=== PATIENT | male | born 1985 | race Caucasian/White ===

== ENCOUNTER 2019-03-01 14:29 | Emergency (ER) | payer SELFPAY ==
[~2019-03-01] VITALS: Ht 180.3 cm; Wt 85.5 kg
[2019-03-01 14:42] VITALS: TEMP 97.7
[2019-03-01 15:04] LABS: COLLECTION METHOD CLEAN CATCH
[2019-03-01 15:36] LABS: TRICYCLIC ANTIDEPRESS URINE NEGATIVE
[2019-03-01 15:49] LABS: BASO # 0.1 (0.0-0.2); BASO % 0.7 % (0.0-2.0); EOS % 0.2 % (0-4.0); GRAN # 7.1 (1.4-6.5); GRAN % 80.8 % (42.2-75.2); HEMATOCRIT 48.2 % (42.0-52.0); HEMOGLOBIN 15.9 g/dl (13.5-18.0); MEAN CELL VOLUME 89 fl (80.0-100.0); MEAN CORPUSCULAR HEMOGLOBIN 30 pg (27.0-31.0); MEAN CORPUSCULAR HGB CONC 33 g/dl (33.0-37.0); MEAN PLATELET VOLUME 9.7 fl (7.4-10.4); MONO # 0.6 (0.1-0.6); MONO % 6.8 % (1.7-9.3); PLATELET COUNT 288 K/mm3 (130-400); RED BLOOD COUNT 5.39 M/mm3 (4.20-5.60); REDCELL DISTRIBUTION WIDTH-CV 12.5 % (11.5-14.5)
[2019-03-01] MEDS ORDERED: ULTRAM 50MG TAB50 MG PO (15:54)
[2019-03-01] MEDS ORDERED: SINGULAIR 110 MG/TAB PO (15:54)
[2019-03-01 15:55] LABS: ALANINE AMINOTRANSFERASE 69 U/L (21-72); ALBUMIN 4.5 gm/dL (3.5-5.0); ALKALINE PHOSPHATASE 106 U/L (50-136); ANION GAP 12 mmol/L (7-16); AST,SGOT 100 U/L (15-37); BILIRUBIN,TOTAL 0.7 mg/dL (0.0-1.0); BLOOD UREA NITROGEN 16 mg/dL (9-20); CALCIUM 9.8 mg/dL (8.4-10.2); CARBON DIOXIDE 26 mmol/L (22-30); CHLORIDE 106 mmol/L (98-107); CREATININE, serum 0.72 (0.66-1.25); GLUCOSE 98 mg/dL (74-106); POTASSIUM 3.8 mmol/L (3.4-5.0); SODIUM 144 mmol/L (137-145)
[2019-03-01] MEDS ORDERED: FOCALIN XR15 MG PO (15:55)
[2019-03-01 15:58] LABS: ACETAMINOPHEN < 10 ug/mL (10-30); ALCOHOL(ethanol),MEDICAL < 10 mg/dL; SALICYLATE < 1.0 mg/dL
[2019-03-01 16:08] LABS: AMORPHOUS CRYSTAL Present /uL; MUCOUS Present /lpf; PH 6 (5-8); SQUAMOUS EPITHELIAL 0-2 /hpf; URINE APPEARANCE Cloudy; URINE BACTERIA None Seen /hpf; URINE BILIRUBIN Negative (NEGATIVE); URINE BLOOD Negative (NEGATIVE); URINE COLOR Yellow; URINE GLUCOSE Negative (NEGATIVE); URINE KETONE 1+ (NEGATIVE); URINE LEUKOCYTE ESTERASE Negative (NEGATIVE); URINE NITRATE Negative (NEGATIVE); URINE PROTEIN(semi-quant) Negative (NEGATIVE); URINE RBC 0-2 /hpf
[2019-03-01 20:11] VITALS: BP 119/64; PULSE 71
== END 2019-03-01 20:11 ==
LOC: COL.ER 14:29
PROVIDERS: Emergency Medicine
DX: F22 Delusional disorders (principal); Z90.49 Acquired absence of other specified parts of digestive tract
CPT/HCPCS: A4216; J3486

== ENCOUNTER 2019-03-13 14:40 | Emergency (ER) | payer SELFPAY ==
[~2019-03-13] VITALS: Ht 177.8 cm; Wt 81.8 kg
[~2019-03-13 14:40] MED LIST: FOCALIN XR15 MG PO; SINGULAIR 110 MG/TAB PO; ULTRAM 50MG TAB50 MG PO
[2019-03-13 14:53] VITALS: BP 121/77; TEMP 97.8
[2019-03-13] MEDS ORDERED: HALDOL 5MG T5 MG/TAB PO (15:16)
[2019-03-13] MEDS ORDERED: COGENTIN .0.5 MG/TAB PO (15:16)
[2019-03-13] MEDS ORDERED: DESYREL 100MG100 MG PO ×2 (15:16→16:18)
[2019-03-13 15:35] LABS: BASO % 0.4 % (0.0-2.0); GRAN # 8.5 (1.4-6.5); GRAN % 81.7 % (42.2-75.2); HEMATOCRIT 47.2 % (42.0-52.0); HEMOGLOBIN 15.6 g/dl (13.5-18.0); LYMPH # 1.2 (1.2-3.4); LYMPH % 11.5 % (20.0-51.0); MEAN CELL VOLUME 88 fl (80.0-100.0); MEAN CORPUSCULAR HEMOGLOBIN 29 pg (27.0-31.0); MEAN CORPUSCULAR HGB CONC 33 g/dl (33.0-37.0); MEAN PLATELET VOLUME 9.2 fl (7.4-10.4); MONO # 0.6 (0.1-0.6); MONO % 6.1 % (1.7-9.3); PLATELET COUNT 242 K/mm3 (130-400); RED BLOOD COUNT 5.39 M/mm3 (4.20-5.60); REDCELL DISTRIBUTION WIDTH-CV 12.1 % (11.5-14.5)
[2019-03-13 15:45] LABS: ALBUMIN 4.3 gm/dL (3.5-5.0); BILIRUBIN,TOTAL 0.6 mg/dL (0.0-1.0); CALCIUM 9.8 mg/dL (8.4-10.2); CREATININE, serum 0.9 (0.66-1.25); POTASSIUM 4.1 mmol/L (3.4-5.0); TOTAL PROTEIN 7.7 gm/dL (6.4-8.2)
[2019-03-13] MEDS ORDERED: COGENTIN 1MG1 MG/TAB PO (16:18)
[2019-03-13] MEDS ORDERED: HALDOL 2MG T2 MG/TAB PO (16:18)
[2019-03-13 16:36] VITALS: PULSE 87
== END 2019-03-13 16:37 | disposition home or self-care (01) ==
LOC: COL.ER 14:40
PROVIDERS: Family Medicine
DX: G24.09 Other drug induced dystonia (principal); F20.9 Schizophrenia, unspecified
CPT/HCPCS: J1200

== ENCOUNTER 2019-03-21 13:15 | Emergency (ER) | payer SELFPAY ==
[~2019-03-21] VITALS: Ht 177.8 cm; Wt 81.8 kg
[~2019-03-21 13:15] MED LIST changes: +COGENTIN .0.5 MG/TAB PO; +COGENTIN 1MG1 MG/TAB PO; +DESYREL 100MG100 MG PO; +HALDOL 2MG T2 MG/TAB PO; +HALDOL 5MG T5 MG/TAB PO
[2019-03-21 13:21] VITALS: TEMP 96
[2019-03-21 14:15] LABS: BASO # 0.1 (0.0-0.2); BASO % 0.6 % (0.0-2.0); EOS # 0.1 (0.0-0.7); EOS % 0.6 % (0-4.0); GRAN # 6.5 (1.4-6.5); GRAN % 79.4 % (42.2-75.2); HEMATOCRIT 46.8 % (42.0-52.0); HEMOGLOBIN 15.4 g/dl (13.5-18.0); LYMPH % 12.1 % (20.0-51.0); MEAN CELL VOLUME 90 fl (80.0-100.0); MEAN CORPUSCULAR HEMOGLOBIN 29 pg (27.0-31.0); MEAN CORPUSCULAR HGB CONC 33 g/dl (33.0-37.0); MEAN PLATELET VOLUME 9.4 fl (7.4-10.4); MONO # 0.6 (0.1-0.6); MONO % 7.1 % (1.7-9.3); PLATELET COUNT 245 K/mm3 (130-400); RED BLOOD COUNT 5.23 M/mm3 (4.20-5.60); REDCELL DISTRIBUTION WIDTH-CV 12.1 % (11.5-14.5)
[2019-03-21 14:26] LABS: ALBUMIN 4.3 gm/dL (3.5-5.0); BILIRUBIN,TOTAL 0.3 mg/dL (0.0-1.0); CALCIUM 9.5 mg/dL (8.4-10.2); CREATININE, serum 1.2 (0.66-1.25); MAGNESIUM 2.2 mg/dL (1.6-2.3); PHOSPHOROUS 3.2 mg/dL (2.5-4.5); POTASSIUM 4.2 mmol/L (3.4-5.0); TOTAL PROTEIN 7.7 gm/dL (6.4-8.2)
[2019-03-21 14:55] LABS: TSH w REFLEX 0.465 uIU/mL (0.465-4.680)
[2019-03-21] MEDS ORDERED: ATIVAN 0.50.5 MG/TAB PO (15:22)
[2019-03-21 16:13] VITALS: BP 116/76; PULSE 58
== END 2019-03-21 16:16 | disposition home or self-care (01) ==
LOC: COL.ER 13:15
PROVIDERS: Emergency Medicine
DX: G24.02 Drug induced acute dystonia (principal); F22 Delusional disorders
CPT/HCPCS: J1200; J2060; J7030

== ENCOUNTER 2019-06-13 18:21 | Emergency (ER) | payer OTHER ==
[~2019-06-13] VITALS: Ht 180.3 cm; Wt 81.8 kg
[~2019-06-13 18:21] MED LIST changes: +ATIVAN 0.50.5 MG/TAB PO
[2019-06-13 18:32] VITALS: TEMP 98.3
[2019-06-13 19:26] LABS: COLLECTION METHOD CLEAN CATCH
[2019-06-13 19:36] LABS: BASO # 0.1 (0.0-0.2); BASO % 0.6 % (0.0-2.0); GRAN # 6.8 (1.4-6.5); GRAN % 78.2 % (42.2-75.2); HEMATOCRIT 48.2 % (42.0-52.0); HEMOGLOBIN 16.3 g/dl (13.5-18.0); LYMPH # 1.3 (1.2-3.4); LYMPH % 14.8 % (20.0-51.0); MEAN CELL VOLUME 85 fl (80.0-100.0); MEAN CORPUSCULAR HEMOGLOBIN 29 pg (27.0-31.0); MEAN CORPUSCULAR HGB CONC 34 g/dl (33.0-37.0); MEAN PLATELET VOLUME 9.3 fl (7.4-10.4); MONO # 0.5 (0.1-0.6); MONO % 6.2 % (1.7-9.3); PLATELET COUNT 247 K/mm3 (130-400); RED BLOOD COUNT 5.65 M/mm3 (4.20-5.60); REDCELL DISTRIBUTION WIDTH-CV 12.9 % (11.5-14.5)
[2019-06-13 19:44] LABS: MUCOUS Present /lpf; PH 6 (5-8); SQUAMOUS EPITHELIAL None Seen /hpf; URINE APPEARANCE Clear; URINE BACTERIA None Seen /hpf; URINE BILIRUBIN Negative (NEGATIVE); URINE BLOOD Negative (NEGATIVE); URINE COLOR Yellow; URINE GLUCOSE Negative (NEGATIVE); URINE KETONE 2+ (NEGATIVE); URINE LEUKOCYTE ESTERASE Negative (NEGATIVE); URINE NITRATE Negative (NEGATIVE); URINE PROTEIN(semi-quant) Negative (NEGATIVE); URINE RBC 0-2 /hpf
[2019-06-13 19:48] LABS: ALBUMIN 4.8 gm/dL (3.5-5.0); BILIRUBIN,TOTAL 0.6 mg/dL (0.0-1.0); C-REACTIVE PROTEIN 0.7 mg/dL (0.0-0.9); CALCIUM 9.6 mg/dL (8.4-10.2); CREATININE, serum 0.8 (0.66-1.25); POTASSIUM 3.6 mmol/L (3.4-5.0); TOTAL PROTEIN 8.1 gm/dL (6.4-8.2)
[2019-06-13] MEDS ORDERED: PEPCID40 MG PO (20:14)
[2019-06-13 20:40] VITALS: BP 125/80; PULSE 72
== END 2019-06-13 20:41 | disposition home or self-care (01) ==
LOC: COL.ER 18:21
PROVIDERS: Emergency Medicine
DX: R10.11 Right upper quadrant pain (principal); R10.31 Right lower quadrant pain; R10.12 Left upper quadrant pain; R10.32 Left lower quadrant pain; F20.9 Schizophrenia, unspecified

== ENCOUNTER 2019-06-14 14:35 | Emergency (ER) | payer OTHER ==
[~2019-06-14 14:35] MED LIST changes: +PEPCID40 MG PO
[2019-06-15] MEDS ORDERED: BACTROBAN 22GM22 GM TP (11:46)
== END 2019-06-14 14:50 | disposition left against medical advice (07) ==
LOC: COL.ER 14:35
DX: Z72.9 Problem related to lifestyle, unspecified (principal)

== ENCOUNTER 2019-06-15 08:38 | Emergency (ER) | payer OTHER ==
[~2019-06-15] VITALS: Ht 177.8 cm; Wt 81.8 kg
[2019-06-15 08:42] VITALS: BP 115/77; TEMP 98.8
[2019-06-15 09:38] LABS: COLLECTION METHOD CLEAN CATCH
[2019-06-15 09:43] LABS: BASO % 0.5 % (0.0-2.0); EOS % 0.1 % (0-4.0); GRAN # 6.6 (1.4-6.5); GRAN % 78.8 % (42.2-75.2); HEMATOCRIT 47.8 % (42.0-52.0); HEMOGLOBIN 15.7 g/dl (13.5-18.0); LYMPH # 1.1 (1.2-3.4); LYMPH % 13.4 % (20.0-51.0); MEAN CELL VOLUME 86 fl (80.0-100.0); MEAN CORPUSCULAR HEMOGLOBIN 28 pg (27.0-31.0); MEAN CORPUSCULAR HGB CONC 33 g/dl (33.0-37.0); MEAN PLATELET VOLUME 9.4 fl (7.4-10.4); MONO # 0.6 (0.1-0.6); MONO % 6.8 % (1.7-9.3); PLATELET COUNT 235 K/mm3 (130-400); RED BLOOD COUNT 5.56 M/mm3 (4.20-5.60); REDCELL DISTRIBUTION WIDTH-CV 13.2 % (11.5-14.5)
[2019-06-15 09:46] LABS: MUCOUS Present /lpf; PH 5 (5-8); SQUAMOUS EPITHELIAL None Seen /hpf; URINE APPEARANCE Hazy; URINE BACTERIA Moderate /hpf; URINE BILIRUBIN Negative (NEGATIVE); URINE BLOOD Negative (NEGATIVE); URINE COLOR Yellow; URINE GLUCOSE Negative (NEGATIVE); URINE KETONE 1+ (NEGATIVE); URINE LEUKOCYTE ESTERASE Negative (NEGATIVE); URINE NITRATE Negative (NEGATIVE); URINE PROTEIN(semi-quant) 1+ (NEGATIVE)
[2019-06-15 09:54] LABS: ALBUMIN 4.6 gm/dL (3.5-5.0); BILIRUBIN,TOTAL 0.5 mg/dL (0.0-1.0); CALCIUM 9.4 mg/dL (8.4-10.2); CREATININE, serum 0.85 (0.66-1.25); POTASSIUM 4.4 mmol/L (3.4-5.0); TOTAL PROTEIN 7.7 gm/dL (6.4-8.2)
[2019-06-15 10:07] LABS: TRICYCLIC ANTIDEPRESS URINE NEGATIVE
[2019-06-15] MEDS ORDERED: BACTROBAN 22GM22 GM TP (11:46)
[2019-06-15 12:05] VITALS: PULSE 89
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
== END 2019-06-15 12:09 | disposition home or self-care (01) ==
LOC: COL.ER 08:38
PROVIDERS: Family Medicine
DX: S80.811A Abrasion, right lower leg, initial encounter (principal); F20.9 Schizophrenia, unspecified; W22.8XXA Striking against or struck by other objects, initial encounter

== ENCOUNTER 2019-06-17 13:59 | Emergency (ER) | payer OTHER ==
[~2019-06-17] VITALS: Ht 180.3 cm; Wt 81.8 kg
[~2019-06-17 13:59] MED LIST changes: +BACTROBAN 22GM22 GM TP
[2019-06-17 14:09] VITALS: BP 113/74; TEMP 97.9
[2019-06-17 14:37] VITALS: PULSE 79
== END 2019-06-17 14:37 | disposition home or self-care (01) ==
LOC: COL.ER 13:59
DX: L08.9 Local infection of the skin and subcutaneous tissue, unspecified (principal); L98.9 Disorder of the skin and subcutaneous tissue, unspecified; F31.9 Bipolar disorder, unspecified; F90.9 Attention-deficit hyperactivity disorder, unspecified type; F20.9 Schizophrenia, unspecified
CPT/HCPCS: J0696

== ENCOUNTER 2019-06-21 23:55 | Emergency (ER) | payer OTHER ==
[2019-06-22 00:04] VITALS: BP 128/86; PULSE 81
== END 2019-06-22 00:20 | disposition left against medical advice (07) ==
LOC: COL.ER 23:55
DX: R69 Illness, unspecified (principal)

== ENCOUNTER 2019-06-22 15:25 | Emergency (ER) | payer OTHER ==
[~2019-06-22] VITALS: Ht 177.8 cm; Wt 81.8 kg
[2019-06-22 15:39] VITALS: BP 132/72; PULSE 77; TEMP 98.4
[2019-06-22 15:45] LABS: COLLECTION METHOD CLEAN CATCH
[2019-06-22 16:06] LABS: TRICYCLIC ANTIDEPRESS URINE NEGATIVE
[2019-06-22 16:10] LABS: ALANINE AMINOTRANSFERASE 33 U/L (21-72); ALBUMIN 4.5 gm/dL (3.5-5.0); ALKALINE PHOSPHATASE 111 U/L (50-136); ANION GAP 9 mmol/L (7-16); AST,SGOT 31 U/L (15-37); BASO # 0.1 (0.0-0.2); BILIRUBIN,TOTAL 0.8 mg/dL (0.0-1.0); BLOOD UREA NITROGEN 13 mg/dL (9-20); CALCIUM 9.6 mg/dL (8.4-10.2); CARBON DIOXIDE 27 mmol/L (22-30); CHLORIDE 103 mmol/L (98-107); CREATININE, serum 0.93 (0.66-1.25); EOS # 0.1 (0.0-0.7); EOS % 1.6 % (0-4.0); GLUCOSE 85 mg/dL (74-106); GRAN % 65.8 % (42.2-75.2); HEMATOCRIT 48.6 % (42.0-52.0); HEMOGLOBIN 16.6 g/dl (13.5-18.0); LYMPH # 1.4 (1.2-3.4); LYMPH % 22.3 % (20.0-51.0); MEAN CELL VOLUME 84 fl (80.0-100.0); MEAN CORPUSCULAR HEMOGLOBIN 29 pg (27.0-31.0); MEAN CORPUSCULAR HGB CONC 34 g/dl (33.0-37.0); MEAN PLATELET VOLUME 9.6 fl (7.4-10.4); MONO # 0.6 (0.1-0.6); MONO % 9.1 % (1.7-9.3); PLATELET COUNT 225 K/mm3 (130-400); POTASSIUM 4.2 mmol/L (3.4-5.0); RED BLOOD COUNT 5.76 M/mm3 (4.20-5.60); REDCELL DISTRIBUTION WIDTH-CV 12.8 % (11.5-14.5); SODIUM 138 mmol/L (137-145); TOTAL PROTEIN 7.7 gm/dL (6.4-8.2)
[2019-06-22 16:12] LABS: ACETAMINOPHEN < 10 ug/mL (10-30); ALCOHOL(ethanol),MEDICAL < 10 mg/dL; SALICYLATE < 1.0 mg/dL
[2019-06-22 16:48] LABS: MUCOUS Present /lpf; PH 5 (5-8); SQUAMOUS EPITHELIAL 0-2 /hpf; URINE APPEARANCE Clear; URINE BACTERIA None Seen /hpf; URINE BILIRUBIN Negative (NEGATIVE); URINE BLOOD Negative (NEGATIVE); URINE COLOR Amber; URINE GLUCOSE Negative (NEGATIVE); URINE KETONE Trace (NEGATIVE); URINE LEUKOCYTE ESTERASE Negative (NEGATIVE); URINE NITRATE Negative (NEGATIVE); URINE PROTEIN(semi-quant) Negative (NEGATIVE); URINE RBC 0-2 /hpf
== END 2019-06-22 17:55 | disposition left against medical advice (07) ==
LOC: COL.ER 15:25
PROVIDERS: Emergency Medicine
DX: K59.00 Constipation, unspecified (principal); R30.0 Dysuria; F20.9 Schizophrenia, unspecified

== ENCOUNTER 2019-08-09 10:55 | Emergency (ER) | payer OTHER ==
[~2019-08-09] VITALS: Ht 177.8 cm; Wt 68.6 kg
[2019-08-09 11:44] LABS: COLLECTION METHOD CLEAN CATCH
[2019-08-09 11:48] LABS: BASO # 0.1 (0.0-0.2); BASO % 0.8 % (0.0-2.0); EOS # 0.1 (0.0-0.7); GRAN # 4.2 (1.4-6.5); GRAN % 71.2 % (42.2-75.2); HEMATOCRIT 47.6 % (42.0-52.0); HEMOGLOBIN 16.2 g/dl (13.5-18.0); LYMPH # 1.2 (1.2-3.4); LYMPH % 20.5 % (20.0-51.0); MEAN CELL VOLUME 84 fl (80.0-100.0); MEAN CORPUSCULAR HEMOGLOBIN 28 pg (27.0-31.0); MEAN CORPUSCULAR HGB CONC 34 g/dl (33.0-37.0); MEAN PLATELET VOLUME 9.7 fl (7.4-10.4); MONO # 0.4 (0.1-0.6); MONO % 6.2 % (1.7-9.3); PLATELET COUNT 239 K/mm3 (130-400); REDCELL DISTRIBUTION WIDTH-CV 12.7 % (11.5-14.5)
[2019-08-09 11:49] LABS: MUCOUS Present /lpf; PH 6 (5-8); SQUAMOUS EPITHELIAL None Seen /hpf; URINE APPEARANCE Clear; URINE BACTERIA None Seen /hpf; URINE BILIRUBIN Negative (NEGATIVE); URINE BLOOD Negative (NEGATIVE); URINE COLOR Yellow; URINE GLUCOSE Negative (NEGATIVE); URINE KETONE Negative (NEGATIVE); URINE LEUKOCYTE ESTERASE Negative (NEGATIVE); URINE NITRATE Negative (NEGATIVE); URINE PROTEIN(semi-quant) Negative (NEGATIVE); URINE RBC 0-2 /hpf; URINE UROBILINOGEN Negative (NEGATIVE)
[2019-08-09 11:58] LABS: TRICYCLIC ANTIDEPRESS URINE NEGATIVE
[2019-08-09 11:59] LABS: ALANINE AMINOTRANSFERASE 25 U/L (21-72); ALBUMIN 4.7 gm/dL (3.5-5.0); ALKALINE PHOSPHATASE 102 U/L (50-136); ANION GAP 9 mmol/L (7-16); AST,SGOT 21 U/L (15-37); BILIRUBIN,TOTAL 0.6 mg/dL (0.0-1.0); BLOOD UREA NITROGEN 13 mg/dL (9-20); CALCIUM 9.8 mg/dL (8.4-10.2); CARBON DIOXIDE 27 mmol/L (22-30); CHLORIDE 102 mmol/L (98-107); CREATININE, serum 0.78 (0.66-1.25); GLUCOSE 87 mg/dL (74-106); POTASSIUM 4.3 mmol/L (3.4-5.0); SODIUM 138 mmol/L (137-145)
[2019-08-09 12:01] LABS: ACETAMINOPHEN < 10 ug/mL (10-30); ALCOHOL(ethanol),MEDICAL < 10 mg/dL; SALICYLATE < 1.0 mg/dL
[2019-08-09 12:29] LABS: TSH w REFLEX 0.752 uIU/mL (0.465-4.680)
[2019-08-10 09:24] VITALS: BP 104/70; TEMP 97.2
[2019-08-10 13:55] VITALS: PULSE 95
== END 2019-08-10 13:55 | disposition home or self-care (01) ==
LOC: COL.ER 10:55
PROVIDERS: Physician Assistant
DX: F20.0 Paranoid schizophrenia (principal); F90.9 Attention-deficit hyperactivity disorder, unspecified type; Z88.8 Allergy status to other drugs, medicaments and biological substances

== ENCOUNTER 2019-09-06 15:08 | Emergency (ER) | payer OTHER ==
[~2019-09-06] VITALS: Ht 182.9 cm; Wt 68.2 kg
[2019-09-06] MEDS ORDERED: KLONOPIN 0.5MG0.5 MG PO (17:51)
[2019-09-06] MEDS ORDERED: COGENTIN .0.5 MG/TAB PO (17:51)
[2019-09-06 18:00] VITALS: BP 120/86; PULSE 89; TEMP 98.4
== END 2019-09-06 18:06 | disposition home or self-care (01) ==
LOC: COL.ER 15:08
DX: T43.595A Adverse effect of other antipsychotics and neuroleptics, initial encounter (principal); G25.9 Extrapyramidal and movement disorder, unspecified; F20.9 Schizophrenia, unspecified; F90.9 Attention-deficit hyperactivity disorder, unspecified type; F41.9 Anxiety disorder, unspecified

== ENCOUNTER 2020-04-24 10:30 | Outpatient (RCR) | payer OTHER ==
[~2020-04-24 10:30] MED LIST changes: +KLONOPIN 0.5MG0.5 MG PO
== END 2020-06-14 | disposition home or self-care (01) ==
LOC: WSC
DX: M54.5 Low back pain (principal)

== ENCOUNTER → 2020-04-29 | Outpatient (CLI) | payer OTHER | LOC: COL.RAD 12:04 | DX: M43.17 Spondylolisthesis, lumbosacral region (principal); M51.36 Other intervertebral disc degeneration, lumbar region ==

== ENCOUNTER → 2020-07-07 | Outpatient (CLI) | payer OTHER | LOC: MHCPAIN 14:28 | DX: M47.817 Spondylosis without myelopathy or radiculopathy, lumbosacral region (principal); M54.5 Low back pain; M53.3 Sacrococcygeal disorders, not elsewhere classified; G89.29 Other chronic pain | CPT/HCPCS: G0463 ==

== ENCOUNTER → 2022-05-06 | Outpatient (CLI) | payer OTHER | LOC: COL.RAD 09:36 | DX: Z02.71 Encounter for disability determination (principal); M43.17 Spondylolisthesis, lumbosacral region ==

== ENCOUNTER → 2022-06-24 | Outpatient (CLI) | payer SELFPAY ==
[2022-06-24 10:20] LABS: BASO # 0.1 K/mm3 (0.0-0.2); BASO % 0.9 % (0.0-2.0); EOS # 0.2 K/mm3 (0.0-0.7); EOS % 2.5 % (0.0-4.0); GRAN # 3.8 K/mm3 (1.4-6.5); HEMATOCRIT 47.7 % (42.0-52.0); HEMOGLOBIN 16.1 g/dl (13.5-18.0); LYMPH # 1.9 K/mm3 (1.2-3.4); LYMPH % 29.1 % (20.0-51.0); MEAN CELL VOLUME 85 fl (80.0-100.0); MEAN CORPUSCULAR HEMOGLOBIN 29 pg (27-31); MEAN CORPUSCULAR HGB CONC 34 g/dl (33.0-37.0); MONO # 0.5 K/mm3 (0.1-0.6); MONO % 7.2 % (1.7-9.3); PLATELET COUNT 212 K/mm3 (130-400); RED BLOOD COUNT 5.64 M/mm3 (4.20-5.60)
[2022-06-24 10:43] LABS: ALBUMIN 4.3 gm/dL (3.5-5.0); BILIRUBIN,TOTAL 0.5 mg/dL (0.2-1.2); CALCIUM 9.7 mg/dL (8.4-10.2); CHOLESTEROL RISK RATIO 6.8; CREATININE, serum 1.11 mg/dL (0.72-1.25); POTASSIUM 4.4 mmol/L (3.5-4.5); TOTAL PROTEIN 8.2 gm/dL (6.2-8.1)
[2022-06-24 11:03] LABS: THYROID STIMULATING HORMONE 3.176 uIU/mL (0.350-4.940)
== END ==
LOC: COL.LAB 09:55 → COL.RAD 09:55
PROVIDERS: Registered Nurse
DX: Z79.899 Other long term (current) drug therapy (principal)